=== PATIENT | female | born 1980 | race Caucasian/White ===

== ENCOUNTER 2017-12-25 06:34 | Emergency (ER) | payer SELFPAY ==
[~2017-12-25] VITALS: Ht 152.4 cm; Wt 74.8 kg
--- NOTE | 2017-12-25 07:20 | PHYS DOC ---
Adult General HPI HPI 37-year-old female presents with lower abdominal cramping. She had some cramping last night that resolved. This morning the patient had some pain and she took Tylenol. It helped for a little while but now the pain is gotten worse. She has not had an initial ultrasound for OB appointment yet. Her last menstrual period was October 28. She denies vaginal discharge or spotting. She denies fever or chills. She has had increased urinary frequency but denies dysuria and hematuria. Review of Systems Review of Systems Constitutional: Denies fever or chills [] Eyes: Denies change in visual acuity, redness, or eye pain [] HENT: Denies nasal congestion or sore throat [] Respiratory: Denies cough or shortness of breath [] Cardiovascular: No additional information not addressed in HPI [] GI: Denies nausea, vomiting, bloody stools or diarrhea. Lower abdominal cramping [] : Denies dysuria or hematuria, but has increased frequency [] Musculoskeletal: Denies back pain or joint pain [] Integument: Denies rash or skin lesions [] Neurologic: Denies headache, focal weakness or sensory changes [] Endocrine: Denies polyuria or polydipsia [] All other systems were reviewed and found to be within normal limits, except as documented in this note. Physical Exam Physical Exam Constitutional: Well developed, well nourished, no acute distress, non-toxic appearance. [] HENT: Normocephalic, atraumatic, bilateral external ears normal, oropharynx moist, no oral exudates, nose normal. [] Eyes: PERRLA, EOMI, conjunctiva normal, no discharge. [] Neck: Normal range of motion, no tenderness, supple, no stridor. [] Cardiovascular:Heart rate regular rhythm, no murmur [] Lungs & Thorax: Bilateral breath sounds clear to auscultation [] Abdomen: Bowel sounds normal, soft, mild suprapubic tenderness, no masses. [] Skin: Warm, dry, no erythema, no rash. [] Back: No tenderness, no CVA tenderness. [] Extremities: No tenderness, no cyanosis, no clubbing, ROM intact, no edema. [] Neurologic: Alert and oriented X 3, normal motor function, normal sensory function, no focal deficits noted. [] Psychologic: Affect normal, judgement normal, mood normal. [] EKG EKG [] Radiology/Procedures Radiology/Procedures [] Impressions: EXAM: Obstetrics sonogram. HISTORY: Pain. TECHNIQUE: Transabdominal and transvaginal sonographic imaging of the pelvis was performed. COMPARISON: None. FINDINGS: The uterus measures 10.5 x 7.2 x 5.9 cm. There is a single intrauterine gestational sac with yolk sac and pole. The crown-rump length is 1.2 cm, corresponding with a gestational age of 7 weeks and 3 days. The MARCIAL is 08/10/2018. The heart rate is 136 bpm. The gestational sac is normal in configuration. No subchorionic hematoma is seen. The right ovary measures 2.2 x 2.3 x 2.8 cm and contains a 1.4 cm complex cyst. There is normal blood flow within the right ovary. The left ovary is not seen. There is a small amount of pelvic free fluid. IMPRESSION: 1. Single intrauterine fetus with an estimated gestational age of 7 weeks and 3 days and heart rate of 136 bpm. 2. 1.4 cm complex right ovarian cyst. 2. Small amount of pelvic free fluid. Electronically signed by: Nelda Mahmood MD (12/25/2017 8:52 AM) [facility] Course & Med Decision Making Course & Med Decision Making Pertinent Labs and Imaging studies reviewed. (See chart for details) Ultrasound shows a single intrauterine fetus of 7 weeks 3 days. There is a 1.4 same or complex cyst and a small amount of free fluid in the pelvis. Given how difficult it was to obtain blood from the patient, her cramps could be exacerbated by mild dehydration. I have advised her to stay well-hydrated during drinking at least 2 L a day, more if she is outside. Her labs are unremarkable. Her urinalysis is negative for infection. She is stable for discharge at this time. [] Dragon Disclaimer Dragon Disclaimer This electronic medical record was generated, in whole or in part, using a voice recognition dictation system. Departure Departure: Referrals: PCP,NO (PCP) JUNIE GILLIS DO Dec 25, 2017 07:20
[2017-12-25 08:55] LABS: BASO # 0.1 x10^3/uL (0.0-0.2); BASO % 1 % (0-3); EOS # 0.1 x10^3/uL (0.0-0.7); EOS % 2 % (0-3); HEMATOCRIT 41.3 % (36.0-47.0); LYMPH # 2.1 x10^3/uL (1.0-4.8); LYMPH % 22 % (24-48); MEAN CORPUSCULAR HEMOGLOBIN 30 pg (25-35); MEAN CORPUSCULAR HGB CONC 34 g/dL (31-37); MEAN CORPUSCULAR VOLUME 90 fL (79-100); MONO # 0.4 x10^3/uL (0.0-1.1); MONO % 5 % (0-9); NEUT # 6.7 x10^3uL (1.8-7.7); NEUT % 71 % (31-73); PLATELET COUNT 393 x10^3/uL (140-400); RED BLOOD COUNT 4.62 x10^6/uL (3.50-5.40); RED CELL DISTRIBUTION WIDTH 13.4 % (11.5-14.5); WHITE BLOOD COUNT 9.5 x10^3/uL (4.0-11.0)
--- NOTE | 2017-12-25 08:55 | RAD ---
EXAM: Obstetrics sonogram. HISTORY: Pain. TECHNIQUE: Transabdominal and transvaginal sonographic imaging of the pelvis was performed. COMPARISON: None. FINDINGS: The uterus measures 10.5 x 7.2 x 5.9 cm. There is a single intrauterine gestational sac with yolk sac and pole. The crown-rump length is 1.2 cm, corresponding with a gestational age of 7 weeks and 3 days. The MARCIAL is 08/10/2018. The heart rate is 136 bpm. The gestational sac is normal in configuration. No subchorionic hematoma is seen. The right ovary measures 2.2 x 2.3 x 2.8 cm and contains a 1.4 cm complex cyst. There is normal blood flow within the right ovary. The left ovary is not seen. There is a small amount of pelvic free fluid. IMPRESSION: 1. Single intrauterine fetus with an estimated gestational age of 7 weeks and 3 days and heart rate of 136 bpm. 2. 1.4 cm complex right ovarian cyst. 2. Small amount of pelvic free fluid. Electronically signed by: Nelda Mahmood MD (12/25/2017 8:52 AM) [place] [id number]
[2017-12-25 09:01] LABS: CALCIUM 9.2 mg/dL (8.5-10.1); CREATININE 0.7 mg/dL (0.6-1.0); GFR 95.2; POTASSIUM 3.7 mmol/L (3.5-5.1)
[2017-12-25 09:19] VITALS: BP 110/59
[2017-12-25 09:22] LABS: BACTERIA,URINE MOD /HPF (0-FEW); BILIRUBIN,URINE NEG (NEG); CLARITY,URINE HAZY; COLOR,URINE YELLOW; GLUCOSE,URINE NEG (NEG); NITRITE,URINE NEG (NEG); SQUAMOUS EPITHELIAL CELL,UR FEW /LPF; UROBILINOGEN,URINE 1 mg/dL (0.2 mg/dL)
== END 2017-12-25 09:40 | disposition home or self-care (01) ==
LOC: ER 06:34
DX: O34.81 Maternal care for other abnormalities of pelvic organs, first trimester (principal); E86.0 Dehydration; Z3A.01 Less than 8 weeks gestation of pregnancy
CPT/HCPCS: 36415; 76805; 76817; 80048; 81001; 84702; 85025; 86900; 86901; 87086; 99285-25